=== PATIENT | male | born 2000 | race Caucasian/White ===

== ENCOUNTER 2024-09-14 04:30 | Emergency (ER) | payer OTHER ==
[~2024-09-14] VITALS: Ht 177.8 cm; Wt 77.1 kg
[2024-09-14] MEDS ORDERED: LET SOLN TOPICAL 8 ML UDC TP ONE (05:15)
[2024-09-14] MEDS: LET SOLN TOPICAL 8 ML UDC TP ONE (05:18)
[2024-09-14 05:23] VITALS: BP 120/51; TEMP 98.7; O2SAT 96
== END 2024-09-14 05:23 | disposition home or self-care (01) ==
LOC: ER 04:33
DX: S70.311A Abrasion, right thigh, initial encounter (principal); M79.81 Nontraumatic hematoma of soft tissue; Z60.2 Problems related to living alone; W01.10XA Fall on same level from slipping, tripping and stumbling with subsequent striking against unspecified object, initial encounter; Y93.64 Activity, baseball; Y92.89 Other specified places as the place of occurrence of the external cause; Y99.8 Other external cause status